=== PATIENT | female | born 2005 | race Caucasian/White ===

== ENCOUNTER 2024-06-08 20:34 | Emergency (ER) | payer BC, SELFPAY ==
[2024-06-08 20:36] VITALS: BP 140/88; PULSE 94; RESP 18; TEMP 37.1; O2SAT 99; BMI 43.0
--- NOTE | 2024-06-08 20:41 | ED_ITS ---
<Statement entered by Polo Wetzel MD - 06/09/24 02:48> I was consulted by the NANCY, and we discussed the complexity of problems being addressed. I approved the treatment and management plan for this patient's care in the emergency department, thus performing a substantial portion of the medical decision making. Polo Wetzel MD Discharge Plan Disposition Patient Disposition: Home, Self-Care Referrals Follow up/Referrals: Isma Mariee [Primary Care Provider] - See instructions Chaparro Watts MD [Staff Physician] - See instructions (Abdominal pain, history of thickened gallbladder, no obvious cholecystitis on imaging, needs outpatient follow-up) Activity Restrictions/Add. Instructions Additional Instructions/Restrictions: You were evaluated in the ER and are appropriate for discharge at this time. Do MiraLAX and Benefiber mixed together daily. Follow the FODMAP diet. Also contact Dr. Mcintosh for GI consult related to possible IBS. Do not hesitate to return to the ER for any worsening symptoms. Follow-up with general surgery to reevaluate gallbladder thickening. Also follow-up with your primary care doctor for reevaluation. Return to the ER with new, worsening, or otherwise concerning symptoms. Clinical Impressions Clinical Impression: Thickening of wall of gallbladder, Constipation Instructions Patient Instructions: DI for Acute Abdominal Pain Print Language Print Language: Salvadorean Discharge ED Provider: Elmer Gonzalez Adult HPI <Patricia Durán (ED), DJ INSTRUCTOR - Last Filed: 06/09/24 00:05> General Chief complaint: Abdominal Pain Stated complaint: Stomach pain,lower back pain with vomiting Time Seen by Provider: 06/08/24 20:42 Related Data Allergies Allergy/AdvReac Type Severity Reaction Status Date / Time amoxicillin Allergy Verified 06/08/24 20:59 PFS <Patricia Durán (ED), DJ INSTRUCTOR - Last Filed: 06/09/24 00:05> [facility] Disclaimer: The information contained in this section may have been updated after the patient was seen, as this information can be updated by other users. Medical History (Updated 06/09/24 @ 00:04 by Patricia Durán (ED), DJ INSTRUCTOR) Asthma Anxiety Hypertension Surgical History (Updated 06/08/24 @ 21:00 by Digna Roque RN) History of tonsillectomy Social History (Updated 06/08/24 @ 23:43 by Elmer Gonzalez MD) Smoking Status: Never smoker alcohol intake: former current occupational status: other Travel in the last 8 weeks: None <Elmer Gonzalez MD - Last Filed: 06/08/24 23:43> ROS Obtained: Yes other Physical Exam <Elmer Gonzalez MD - Last Filed: 06/08/24 23:43> General General appearance: alert Respiratory Respiratory exam: Absent respiratory distress Cardiovascular Cardiovascular exam: Present regular rate and normal rhythm Neurological Exam Neurological exam: Present other Medical Decision Making <Patricia Durán (ED), DJ INSTRUCTOR - Last Filed: 06/09/24 00:05> Vital Signs: 06/08/24 20:36 06/09/24 00:31 Temperature 98.8 F 98.2 F Temperature Source Oral Oral Pulse Rate 61 Pulse Rate [Left Radial] 94 H Respiratory Rate 18 16 Blood Pressure 102/47 L Blood Pressure [Right Arm] 140/88 Blood Pressure Mean [Right Arm] 105 Blood Pressure Source Automatic Cuff Blood Pressure Source [Right Arm] Automatic Cuff Blood Pressure Position Sitting Blood Pressure Position [Right Arm] Sitting 02 Sat by Pulse Oximetry 99 Oxygen Delivery Method Room Air Room Air Lab Data Lab Results 06/08/24 21:10: WBC 14.3 H, RBC 4.48, Hgb 11.3 L, Hct 35.8 L, MCV 79.9 L, MCH 25.2 L, MCHC 31.5 L, RDW 15.3, Plt Count 387, MPV 7.1 L, Neut % (Auto) 58.5, Lymph % (Auto) 35.8, [place] % (Auto) 3.6, Eos % (Auto) 1.5, Baso % (Auto) 0.5, N eut # (Auto) 8.4 H, Lymph # (Auto) 5.1 H, [place] # (Auto) 0.5, Eos # (Auto) 0.2, Baso # (Auto) 0.1, Sodium 136, Potassium 3.7, Chloride 105, Carbon Dioxide 26, Anion Gap 8.7, BUN 12, Creatinine 0.80, Estimated Creat Clear 88, Estimated GFR 91, Est GFR ( Amer) 110, Glucose 111 H, Calcium 9.2, Total Bilirubin 0.3, AST 27, ALT 21, Alkaline Phosphatase 83, Total Protein 7.9, Albumin 4.0, G lobulin 3.9 H, Albumin/Globulin Ratio 1.0 L, Serum HCG, Qual Negative 06/09/24 00:02: Urine Color Yellow, Urine Appearance Clear, Urine pH 6.0, Ur Specific [place] 1.010, Urine Protein Negative, Urine Glucose (UA) Negative, Urine Ketones Negative, Urine Blood Negative, Urine Nitrate Negative, Urine Bilirubin Negative, Urine Urobilinogen 0.2, Ur Leukocyte Esterase Trace, Urine RBC Occasional 06/08/24 21:10 06/08/24 21:10 Orders (Tests/Meds): ED MEDICATIONS Discontinued Medications Generic Name Dose Route Start Last Admin Trade Name Freq PRN Reason Stop Dose Admin Acetaminophen 1,000 mg 06/09/24 00:10 06/09/24 00:13 Acetaminophen 500mg Tab PO 06/09/24 00:11 1,000 mg ONCE ONE Administration Belladonna Alkaloids 60 ml 06/08/24 20:56 06/08/24 21:22 Belladonna Alkaloids 60 Ml Ml PO 06/08/24 20:57 60 ml ONCE ONE Administration Sodium Chloride 500 mls @ 999 mls/hr 06/08/24 21:00 06/08/24 21:23 Sod Chlor 0.9% 1000ml Bag IV 06/08/24 21:30 Not Given .Q31M ONE Sodium Chloride 500 mls @ 500 mls/hr 06/08/24 21:30 06/08/24 21:22 Sod Chloride 0.9% 500ml Bag IV 06/08/24 22:29 500 mls/hr .Q1H CAT Administration Lactated Ringer's 1,000 mls @ 999 mls/hr 06/08/24 22:20 06/08/24 22:33 Lactated Ringer's 1000 Ml Bag IV 06/08/24 23:20 999 mls/hr .Q1H1M ONE Administration Iopamidol 75 ml 06/08/24 23:28 06/08/24 23:29 Iopamidol-370 (76%);100ml Bottle IV 06/08/24 23:29 75 ml ONCE ONE Administration Ondansetron HCl 4 mg 06/08/24 20:59 06/08/24 21:22 Ondansetron 4mg Odt SL 06/08/24 21:00 Not Given ONCE ONE Ondansetron HCl 4 mg 06/08/24 21:00 06/08/24 21:22 Ondansetron 4mg/2ml Vial IV 06/08/24 21:01 4 mg ONCE ONE Administration Sodium Chloride 10 ml 06/08/24 23:28 06/08/24 23:29 Sodium Chloride 0.9% 10ml Syr (Rad Only) IV 07/08/24 23:27 10 ml NEEDED PRN Administration Maintain IV Site ORDERS Category Date Time Status CT abdomen w con Stat Cat Scan 06/08/24 23:05 Completed POCUS Point of Care (ER Only) Stat Exams 06/08/24 22:35 Ordered CBC [Complete Blood Count Auto Diff] Stat Lab 06/08/24 21:10 Completed CMP [Comprehensive Metabolic Panel] Stat Lab 06/08/24 21:10 Completed Covid-19 Nasal PCR (H) Routine Lab 06/08/24 21:43 Received Serum [HCG Qualitative, Serum] Stat Lab 06/08/24 21:10 Completed Urinalysis-Acute [Urinalysis and Microscopic] Stat Lab 06/09/24 00:02 Completed <Elmer Gonzalez MD - Last Filed: 06/08/24 23:43> Ulises Inquiry Pt receiving controlled substance: No Vital Signs: 06/08/24 20:36 06/09/24 00:31 Temperature 98.8 F 98.2 F Temperature Source Oral Oral Pulse Rate 61 Pulse Rate [Left Radial] 94 H Respiratory Rate 18 16 Blood Pressure 102/47 L Blood Pressure [Right Arm] 140/88 Blood Pressure Mean [Right Arm] 105 Blood Pressure Source Automatic Cuff Blood Pressure Source [Right Arm] Automatic Cuff Blood Pressure Position Sitting Blood Pressure Position [Right Arm] Sitting 02 Sat by Pulse Oximetry 99 Oxygen Delivery Method Room Air Room Air Lab Data Lab Results 06/08/24 21:10: WBC 14.3 H, RBC 4.48, Hgb 11.3 L, Hct 35.8 L, MCV 79.9 L, MCH 25.2 L, MCHC 31.5 L, RDW 15.3, Plt Count 387, MPV 7.1 L, Neut % (Auto) 58.5, Lymph % (Auto) 35.8, [place] % (Auto) 3.6, Eos % (Auto) 1.5, Baso % (Auto) 0.5, N eut # (Auto) 8.4 H, Lymph # (Auto) 5.1 H, [place] # (Auto) 0.5, Eos # (Auto) 0.2, Baso # (Auto) 0.1, Sodium 136, Potassium 3.7, Chloride 105, Carbon Dioxide 26, Anion Gap 8.7, BUN 12, Creatinine 0.80, Estimated Creat Clear 88, Estimated GFR 91, Est GFR ( Amer) 110, Glucose 111 H, Calcium 9.2, Total Bilirubin 0.3, AST 27, ALT 21, Alkaline Phosphatase 83, Total Protein 7.9, Albumin 4.0, G lobulin 3.9 H, Albumin/Globulin Ratio 1.0 L, Serum HCG, Qual Negative 06/09/24 00:02: Urine Color Yellow, Urine Appearance Clear, Urine pH 6.0, Ur Specific [place] 1.010, Urine Protein Negative, Urine Glucose (UA) Negative, Urine Ketones Negative, Urine Blood Negative, Urine Nitrate Negative, Urine Bilirubin Negative, Urine Urobilinogen 0.2, Ur Leukocyte Esterase Trace, Urine RBC Occasional Orders (Tests/Meds): ED MEDICATIONS Discontinued Medications Generic Name Dose Route Start Last Admin Trade Name Freq PRN Reason Stop Dose Admin Acetaminophen 1,000 mg 06/09/24 00:10 06/09/24 00:13 Acetaminophen 500mg Tab PO 06/09/24 00:11 1,000 mg ONCE ONE Administration Belladonna Alkaloids 60 ml 06/08/24 20:56 06/08/24 21:22 Belladonna Alkaloids 60 Ml Ml PO 06/08/24 20:57 60 ml ONCE ONE Administration Sodium Chloride 500 mls @ 999 mls/hr 06/08/24 21:00 06/08/24 21:23 Sod Chlor 0.9% 1000ml Bag IV 06/08/24 21:30 Not Given .Q31M ONE Sodium Chloride 500 mls @ 500 mls/hr 06/08/24 21:30 06/08/24 21:22 Sod Chloride 0.9% 500ml Bag IV 06/08/24 22:29 500 mls/hr .Q1H CAT Administration Lactated Ringer's 1,000 mls @ 999 mls/hr 06/08/24 22:20 06/08/24 22:33 Lactated Ringer's 1000 Ml Bag IV 06/08/24 23:20 999 mls/hr .Q1H1M ONE Administration Iopamidol 75 ml 06/08/24 23:28 06/08/24 23:29 Iopamidol-370 (76%);100ml Bottle IV 06/08/24 23:29 75 ml ONCE ONE Administration Ondansetron HCl 4 mg 06/08/24 20:59 06/08/24 21:22 Ondansetron 4mg Odt SL 06/08/24 21:00 Not Given ONCE ONE Ondansetron HCl 4 mg 06/08/24 21:00 06/08/24 21:22 Ondansetron 4mg/2ml Vial IV 06/08/24 21:01 4 mg ONCE ONE Administration Sodium Chloride 10 ml 06/08/24 23:28 06/08/24 23:29 Sodium Chloride 0.9% 10ml Syr (Rad Only) IV 07/08/24 23:27 10 ml NEEDED PRN Administration Maintain IV Site ORDERS Category Date Time Status CT abdomen w con Stat Cat Scan 06/08/24 23:05 Completed POCUS Point of Care (ER Only) Stat Exams 06/08/24 22:35 Ordered CBC [Complete Blood Count Auto Diff] Stat Lab 06/08/24 21:10 Completed CMP [Comprehensive Metabolic Panel] Stat Lab 06/08/24 21:10 Completed Covid-19 Nasal PCR ([facility]) Routine Lab 06/08/24 21:43 Received Serum [HCG Qualitative, Serum] Stat Lab 06/08/24 21:10 Completed Urinalysis-Acute [Urinalysis and Microscopic] Stat Lab 06/09/24 00:02 Completed Medical Decision Narrative: I was consulted by the NANCY, and we discussed the complexity of the problems being addressed.I approved the treatment and management plan for this patient?s care in the Emergency Department, thus performing a substantive portion of the medical decision making. CT imaging and ultimate disposition pending at time of shift change. Signed, Elmer Gonzalez MD <Polo Wetzel MD - Last Filed: 06/09/24 02:49> Vital Signs: 06/08/24 20:36 06/09/24 00:31 Temperature 98.8 F 98.2 F Temperature Source Oral Oral Pulse Rate 61 Pulse Rate [Left Radial] 94 H Respiratory Rate 18 16 Blood Pressure 102/47 L Blood Pressure [Right Arm] 140/88 Blood Pressure Mean [Right Arm] 105 Blood Pressure Source Automatic Cuff Blood Pressure Source [Right Arm] Automatic Cuff Blood Pressure Position Sitting Blood Pressure Position [Right Arm] Sitting 02 Sat by Pulse Oximetry 99 Oxygen Delivery Method Room Air Room Air Lab Data Lab Results 06/08/24 21:10: WBC 14.3 H, RBC 4.48, Hgb 11.3 L, Hct 35.8 L, MCV 79.9 L, MCH 25.2 L, MCHC 31.5 L, RDW 15.3, Plt Count 387, MPV 7.1 L, Neut % (Auto) 58.5, Lymph % (Auto) 35.8, [place] % (Auto) 3.6, Eos % (Auto) 1.5, Baso % (Auto) 0.5, N eut # (Auto) 8.4 H, Lymph # (Auto) 5.1 H, [place] # (Auto) 0.5, Eos # (Auto) 0.2, Baso # (Auto) 0.1, Sodium 136, Potassium 3.7, Chloride 105, Carbon Dioxide 26, Anion Gap 8.7, BUN 12, Creatinine 0.80, Estimated Creat Clear 88, Estimated GFR 91, Est GFR ( Amer) 110, Glucose 111 H, Calcium 9.2, Total Bilirubin 0.3, AST 27, ALT 21, Alkaline Phosphatase 83, Total Protein 7.9, Albumin 4.0, G lobulin 3.9 H, Albumin/Globulin Ratio 1.0 L, Serum HCG, Qual Negative 06/09/24 00:02: Urine Color Yellow, Urine Appearance Clear, Urine pH 6.0, Ur Specific [place] 1.010, Urine Protein Negative, Urine Glucose (UA) Negative, Urine Ketones Negative, Urine Blood Negative, Urine Nitrate Negative, Urine Bilirubin Negative, Urine Urobilinogen 0.2, Ur Leukocyte Esterase Trace, Urine RBC Occasional Orders (Tests/Meds): ED MEDICATIONS Discontinued Medications Generic Name Dose Route Start Last Admin Trade Name Freq PRN Reason Stop Dose Admin Acetaminophen 1,000 mg 06/09/24 00:10 06/09/24 00:13 Acetaminophen 500mg Tab PO 06/09/24 00:11 1,000 mg ONCE ONE Administration Belladonna Alkaloids 60 ml 06/08/24 20:56 06/08/24 21:22 Belladonna Alkaloids 60 Ml Ml PO 06/08/24 20:57 60 ml ONCE ONE Administration Sodium Chloride 500 mls @ 999 mls/hr 06/08/24 21:00 06/08/24 21:23 Sod Chlor 0.9% 1000ml Bag IV 06/08/24 21:30 Not Given .Q31M ONE Sodium Chloride 500 mls @ 500 mls/hr 06/08/24 21:30 06/08/24 21:22 Sod Chloride 0.9% 500ml Bag IV 06/08/24 22:29 500 mls/hr .Q1H CAT Administration Lactated Ringer's 1,000 mls @ 999 mls/hr 06/08/24 22:20 06/08/24 22:33 Lactated Ringer's 1000 Ml Bag IV 06/08/24 23:20 999 mls/hr .Q1H1M ONE Administration Iopamidol 75 ml 06/08/24 23:28 06/08/24 23:29 Iopamidol-370 (76%);100ml Bottle IV 06/08/24 23:29 75 ml ONCE ONE Administration Ondansetron HCl 4 mg 06/08/24 20:59 06/08/24 21:22 Ondansetron 4mg Odt SL 06/08/24 21:00 Not Given ONCE ONE Ondansetron HCl 4 mg 06/08/24 21:00 06/08/24 21:22 Ondansetron 4mg/2ml Vial IV 06/08/24 21:01 4 mg ONCE ONE Administration Sodium Chloride 10 ml 06/08/24 23:28 06/08/24 23:29 Sodium Chloride 0.9% 10ml Syr (Rad Only) IV 07/08/24 23:27 10 ml NEEDED PRN Administration Maintain IV Site ORDERS Category Date Time Status CT abdomen w con Stat Cat Scan 06/08/24 23:05 Completed POCUS Point of Care (ER Only) Stat Exams 06/08/24 22:35 Ordered CBC [Complete Blood Count Auto Diff] Stat Lab 06/08/24 21:10 Completed CMP [Comprehensive Metabolic Panel] Stat Lab 06/08/24 21:10 Completed Covid-19 Nasal PCR ([facility]) Routine Lab 06/08/24 21:43 Received Serum [HCG Qualitative, Serum] Stat Lab 06/08/24 21:10 Completed Urinalysis-Acute [Urinalysis and Microscopic] Stat Lab 06/09/24 00:02 Completed Medical Decision Narrative: I was consulted by the NANCY, and we discussed the complexity of the problems being addressed.I approved the treatment and management plan for this patient?s care in the Emergency Department, thus performing a substantive portion of the medical decision making. CT imaging and ultimate disposition pending at time of shift change. Signed, Elmer Gonzalez MD Wetzel: I assumed care of this patient from the NANCY at 2320 with pending urinalysis. I reviewed the workup which was reassuring against acute pathology. Patient has a history of gallbladder wall thickening. She was referred to general surgery for outpatient follow-up of this. UA negative for findings of infection. Patient appropriate for discharge. Patient was given instructions on symptomatic management, follow up instructions, and return precautions for the emergency department. Patient indicated understanding and was discharged in stable condition. Critical Care <Elmer Gonzalez MD - Last Filed: 06/08/24 23:43> Critical Care Time Critical Care Time: No
[2024-06-08] MEDS: ONDANSETRON 4MG/2ML VIAL 4 MG IV (21:22)
[2024-06-08] MEDS: 0.9 % SODIUM CHLORIDE 500 ML IV (21:22)
[2024-06-08] MEDS: BELLADONNA ALKALOIDS 60 ML ML PO (21:22)
[2024-06-08 21:23] LABS: Basophils # 0.1 K/mm3 (0-0.2); Basophils % 0.5 % (0.1-2.0); Eosinophils # 0.2 K/mm3 (0.0-0.4); Eosinophils % 1.5 % (0.1-12.0); Hematocrit 35.8 % (37.0-47.0); Hemoglobin 11.3 g/dL (12.2-16.2); Lymphocytes # 5.1 K/mm3 (0.7-4.5); Lymphocytes % 35.8 % (10-50); Mean Corpuscular HGB Conc 31.5 g/dL (31.8-35.4); Mean Corpuscular Hemoglobin 25.2 pg (27.0-31.2); Mean Corpuscular Volume 79.9 fl (81-99); Mean Platelet Volume 7.1 fl (7.4-10.4); Monocytes # 0.5 K/mm3 (0.1-1.0); Monocytes % 3.6 % (1.7-9.3); Neutrophils # 8.4 K/mm3 (1.8-7.8); Neutrophils % 58.5 % (37.0-80.0); Platelet Count 387 K/mm3 (142-424); Red Blood Count 4.48 M/mm3 (4.20-5.40); Red Cell Distribution Width 15.3 % (11.5-17.5); White Blood Count 14.3 K/mm3 (4.8-10.8)
[2024-06-08 21:34] LABS: Alanine Aminotransferase 21 U/L (12-78); Alkaline Phosphatase 83 U/L (38-126); Anion Gap 8.7 mEq/L (5-15); Aspartate Amino Transferase 27 U/L (14-36); Bilirubin,Total 0.3 mg/dl (0.2-1.3); Blood Urea Nitrogen 12 mg/dl (7-17); Calcium 9.2 mg/dl (8.4-10.2); Carbon Dioxide 26 mmol/L (22.0-30.0); Chloride 105 mmol/L (98-107); Creatinine Clearance Estimated 88 mL/min (50-200); Estimated Glomerular Filt Rate 91 ml/min (>60); GFR (African American) 110 ML/MIN (>60); Globulin 3.9 g/dL (1.3-3.2); Glucose 111 mg/dl (74-100); Potassium 3.7 mmoL/L (3.5-5.1); Sodium 136 mmol/L (136-145); Total Protein,Serum 7.9 g/dl (6.3-8.2)
[2024-06-08] MEDS: LACTATED RINGERS 1000ML 1,000 ML 999 ML IV (22:33)
[2024-06-08 23:00] LABS: HCG Qualitative, Serum Negative (Negative)
--- NOTE | 2024-06-08 23:05 | CT_ITS ---
PROCEDURE INFORMATION: Exam: CT Abdomen With Contrast Exam date and time: 06/08/2024 11:15 PM Age: 19 years old Clinical indication: Abdominal pain; Additional info: Gallbladder TECHNIQUE: Imaging protocol: Computed tomography of the abdomen with contrast. Radiation optimization: All CT scans at this facility use at least one of these dose optimization techniques: automated exposure control; mA and/or kV adjustment per patient size (includes targeted exams where dose is matched to clinical indication); or iterative reconstruction. Contrast material: ISOVUE; Contrast volume: 75 ml; Contrast route: IV; COMPARISON: No relevant prior studies available. FINDINGS: Esophagus: The esophagus is normal. Liver: The liver is normal. Gallbladder and biliary ducts: Mild apparent gallbladder wall thickening. Pancreas: See Adrenal glands finding. Spleen: Spleen is normal Adrenal glands: The adrenal glands appear normal.Pancreas appears normal. Kidneys: The kidneys are normal. Stomach and bowel: Nonspecific bowel gas pattern. Retained stool in the colon. Normal appendix. Stomach is filled with fluid and debris. Intraperitoneal space: Unremarkable. No free air. No significant fluid collection. Vasculature: Portal vein, splenic vein, SMV are patent. The aorta is normal. Visceral arteries are patent. Lymph nodes: No free air or fluid or adenopathy. Scattered mildly prominent mesenteric nodes coronal image 1001/[id number]. Bones/joints: Unremarkable. No acute fracture. No dislocation. Soft tissues: Unremarkable. IMPRESSION: 1. No free air or fluid or adenopathy. 2. Mild apparent gallbladder wall thickening. Ultrasound may be helpful. 3. Nonspecific bowel gas pattern. Retained stool in the colon. Normal appendix. 4. Scattered mildly prominent mesenteric nodes coronal image [id number]. Mesenteric adenitis not excluded.
[2024-06-08] MEDS: SODIUM CHLORIDE 0.9% 10ML SYR (RAD ONLY) 10 ML IV (23:29)
[2024-06-08] MEDS: IOPAMIDOL-370 (76%);100ML BOTTLE 75 ML IV (23:29)
[2024-06-09 00:09] LABS: Appearance,Urine CLEAR (Clear); Bilirubin,Urine Negative (Negative); Blood, Urine Negative (Negative); Color,Urine YELLOW (Yellow); Glucose,Urine (UA) Negative (Negative); Ketones,Urine Negative (Negative); Leukocyte Esterase,Urine TRACE (Negative); Microscopic, Urine URINE MICROSCOPIC (MICROSCOPIC); Nitrate,Urine Negative (Negative); Protein,Urine Negative (Negative); Urobilinogen,Urine 0.2 EU/dl (0.2)
[2024-06-09] MEDS: ACETAMINOPHEN 500MG TAB 1000 MG PO (00:13)
[2024-06-09 00:23] LABS: RBC,Urine Occasional #/hpf (0-3)
[2024-06-09 00:31] VITALS: BP 102/47; PULSE 61; RESP 16; TEMP 36.8; O2SAT 98
== END 2024-06-09 00:33 | disposition home or self-care (01) ==
PROVIDERS: Nurse Practitioner; Emergency Provider Emergency Medicine; PCP Pediatrics
DX: M54.50 Low back pain, unspecified (principal); R10.9 Unspecified abdominal pain; R11.10 Vomiting, unspecified; K83.8 Other specified diseases of biliary tract; K59.00 Constipation, unspecified
CPT/HCPCS: 74160; 80053; 81001; 84703; 85025; 87635; 96361; 96374; 99285; J2405; J7120; Q9967

== ENCOUNTER 2024-10-12 08:57 | Outpatient (CLI) | payer BC, OTHER, SELFPAY ==
[2024-10-12 09:43] LABS: Basophils % 0.4 % (0.1-2.0); Eosinophils # 0.6 K/mm3 (0.0-0.4); Eosinophils % 5.4 % (0.1-12.0); Hematocrit 36.7 % (37.0-47.0); Hemoglobin 11.5 g/dL (12.2-16.2); Lymphocytes # 3.5 K/mm3 (0.7-4.5); Lymphocytes % 32.2 % (10-50); Mean Corpuscular HGB Conc 31.3 g/dL (31.8-35.4); Mean Corpuscular Hemoglobin 24.2 pg (27.0-31.2); Mean Corpuscular Volume 77.3 fl (81-99); Mean Platelet Volume 8.9 fl (7.4-10.4); Monocytes # 0.6 K/mm3 (0.1-1.0); Monocytes % 5.5 % (1.7-9.3); Neutrophils # 6.2 K/mm3 (1.8-7.8); Neutrophils % 56.2 % (37.0-80.0); Platelet Count 350 K/mm3 (142-424); Red Blood Count 4.75 M/mm3 (4.20-5.40)
[2024-10-12 09:46] LABS: Urine Pregnancy, HCG Qual. Negative (Negative)
[2024-10-12 09:51] LABS: Albumin Level 4.5 g/dl (3.5-5.0); Chloride 103 mmol/L (98-107); Potassium 3.4 mmoL/L (3.5-5.1); Sodium 137 mmol/L (136-145)
[2024-10-12 09:53] LABS: Alanine Aminotransferase 20 U/L (12-78); Anion Gap 11.4 mEq/L (5-15); Aspartate Amino Transferase 29 U/L (14-36); Blood Urea Nitrogen 13 mg/dl (7-17); Carbon Dioxide 26 mmol/L (22.0-30.0); Estimated Glomerular Filt Rate 91 ml/min (>60); GFR (African American) 110 ML/MIN (>60)
[2024-10-12 09:54] LABS: Albumin/Globulin Ratio 1.3 (1.1-1.8); Alkaline Phosphatase 86 U/L (38-126); Bilirubin,Total 0.3 mg/dl (0.2-1.3); Calcium 9.7 mg/dl (8.4-10.2); Globulin 3.5 g/dL (1.3-3.2); Glucose 84 mg/dl (74-100)
== END 2024-10-12 23:59 | disposition home or self-care (01) ==
PROVIDERS: PCP Pediatrics; Visit Provider Surgery
DX: Z01.812 Encounter for preprocedural laboratory examination (principal); K81.1 Chronic cholecystitis
CPT/HCPCS: 80053; 81025; 85025

== ENCOUNTER 2024-10-18 08:45 | Day surgery (SDC) | payer OTHER, BC, SELFPAY ==
[2024-10-12 13:15] VITALS: BMI 41.1
[2024-10-18] VITALS (9 sets, daily range): BP systolic 111–144; BP diastolic 68–81; PULSE 72–113; RESP 16–19; TEMP 36.3–37; O2SAT 95–100
--- NOTE | 2024-10-18 08:56 | EXP.ANES.CKL ---
[facility] Disclaimer: The information contained in this section may have been updated after the patient was seen, as this information can be updated by other users. Medical History Asthma Anxiety Hypertension Surgical History History of placement of ear tubes History of tonsillectomy Family History Other Family history of cancer Family history of diabetes mellitus Social History Smoking Status: Never smoker alcohol intake: never substance use type: denies use current occupational status: unemployed Travel in the last 8 weeks: None [facility] Anesthesia Checklist Patient Identification Patient Identification: Arm Band Structural Data Admitted From: Home Planned Operative Procedure/s: Lap cholecystectomy Consent for Planned Operative Procedure(s) Verified: Yes Verified Documents: Surgical Consent and History and Physical NPO Status Verified Time NPO: 00:00 Chart Verification Results Verified: HCG Additional verifications Anesthesia Reactions: No Airway Assessment Mallampati Score:: Class IV C-Spine Mobility Assessed: Yes TMJ Mobility Assessed: Yes Dentition: Good Dentition Neurological Assessment Level of Consciousness: Awake Hx Seizures: No Numbness or tingling in extremities: No Anesthesia Plan Anesthesia Risk discussed: Yes Anesthesia Plan: Verified ASA Class: III Anesthesia Type: General
--- NOTE | 2024-10-18 09:10 | EXP.OP.NOTE ---
Date of procedure: 10/18/24 Pre-op Diagnosis:: Chronic cholecystitis Post-op Diagnosis:: Chronic calculus cholecystitis Procedure performed:: Laparoscopic cholecystectomy Surgeon:: Chaparro Watts MD Anesthesia: GETA Estimated blood loss (mL): 15 Operative findings:: Stones throughout gallbladder Severe infundibular thickening Operative note:: After informed consent was obtained, the patient was taken to the operating room and placed in the supine position. General anesthesia was induced and the abdomen was prepped and draped in a sterile fashion. After infiltration with local anesthetic an infraumbilical incision was made. A Veress needle was placed in position. The abdomen was insufflated. A 5 mm optical trocar was placed in position. Under direct visualization, a 12 mm trocar was placed in the subxiphoid position and 2 additional 5 mm trocars were placed in the right upper quadrant. The gallbladder was elevated up and over the liver margin. The tissue around the cystic duct was carefully dissected. 3 clips were placed proximally and the duct was transected with harmonic shira. Harmonic shira were then utilized to dissect the gallbladder away from the liver margin with careful attention to the control of the cystic artery. The gallbladder was placed in a retrieval bag and removed through the subxiphoid trocar site. The right upper quadrant was thoroughly irrigated. No active bleeding or bile leak was noted. Fascia at the subxiphoid trocar site was reapproximated utilizing 0 Ethibond. The remaining trocars were removed. All wounds were irrigated and skin was closed with 4-0 Monocryl in a subcuticular fashion. Steri-Strips were applied. The patient's anesthetic agents were reversed and extubation was completed prior to transfer to recovery in stable condition. Condition: stable Disposition: PACU Specimens:: Gallbladder and contents Complications:: No immediate
[2024-10-18] MEDS: CLINDAMYCIN PHOSPHATE/D5W 900 MG/50 ML PIGGYBACK 100 MG IV (09:18)
[2024-10-18] MEDS: LIDOCAINE 1% 20ML MDV 20 ML (09:40)
--- NOTE | 2024-10-18 10:59 | P.PNANES_ITS ---
[facility] Anesthesia Record Part I Anesthesia Record I Intake, IV Amount: 900 Hydration: Adequate Estimated blood loss (mL): 25 Urine output (mL): 0 Blood Pressure: 111/74 SaO2: 95 Pulse Rate: 113 Airway Patency: Patent Respiratory Rate: 19 Temperature: 98.6 F Patient is:: Awake Stable to PACU at:: 10:55
[2024-10-18] MEDS: HYDROMORPHONE 2MG/ML SYRINGE 0.5 MG IV (11:15)
--- NOTE | 2024-10-18 15:18 | EXP.ANES.II ---
[facility] Anesthesia Record Part II Anesthesia Record Part II Discharge Time: 11:25 Destination: Surgical Day Care (OP Surgery) PACU nurse assessment reviewed?: Yes Patient Condition:: Good Anesthesia Complications:: None Swallowing reflex intact?: Yes Airway Patency: Patent Cyanosis?: No Blood Pressure: 132/76 SaO2: 100 Respiratory Rate: 18 Pulse Rate: 82 Temperature: 98.6 F Mental Status: Alert & Oriented Pain level:: 0 Nausea and/or vomitting:: None Intake, IV Amount: 0 Hydration: Adequate
== END 2024-10-18 12:05 | disposition home or self-care (01) ==
PROVIDERS: PCP Pediatrics; Visit Provider Surgery
PROC: 0FT44ZZ Resection of Gallbladder, Percutaneous Endoscopic Approach (ICD-10-PCS; CPT 47562; principal; 2024-10-18 09:30)
DX: K80.10 Calculus of gallbladder with chronic cholecystitis without obstruction (principal)
CPT/HCPCS: 47562; 96374; J3490; J0131; J0736; J1100; J1171; J1885; J2250; J2405; J3010

== ENCOUNTER 2025-09-17 12:49 | Outpatient (CLI) | payer BC, OTHER, SELFPAY | END 2025-09-17 23:59 | disposition home or self-care (01) | LOC: LAB 12:52 | PROVIDERS: PCP Pediatrics; Visit Provider Obstetrics & Gynecology | DX: Z34.90 Encounter for supervision of normal pregnancy, unspecified, unspecified trimester (principal); Z3A.00 Weeks of gestation of pregnancy not specified | CPT/HCPCS: 36415; 84144; 84702 ==